=== PATIENT | male | born 1995 | race Hispanic/Latino ===

== ENCOUNTER 2023-06-25 12:40 | Emergency (ER) | payer OTHER, SELFPAY ==
--- NOTE | ~2023-06-25 | XR_ITS ---
EXAMINATION: XR knee LT min 4V DATE: 06/25/2023 13:14 INDICATION: Diffuse left knee swelling with healing wound after patient removed a screw TECHNIQUE: Anteroposterior, 2 oblique and crosstable lateral views of the left knee were obtained COMPARISON: None. FINDINGS: Alignment is normal. No fracture. Joint spaces appear normal on nonweightbearing imaging. Bone islan d at the lateral femoral condyle. Moderate-sized left knee joint effusion. A couple tiny calcific den sities projecting over the quadriceps tendon proximally 4 similar proximal to its patellar insertion. No radiopaque foreign bodies. IMPRESSION: 1. Moderate-sized left knee joint effusion with no acute osseous abnormality or retained radiopaque f oreign bodies. Reviewed, dictated and finalized at location B. IMPRESSION: 1. Moderate-sized left knee joint effusion with no acute osseous abnormality or retained radiopaque foreign bodies.
[2023-06-25 12:59] VITALS: BP 144/82; PULSE 68; RESP 18; TEMP 37.7; O2SAT 100
--- NOTE | 2023-06-25 13:05 | ED.WOUNDLAC ---
HPI - Wound/Laceration General Chief Complaint: Extremity Injury, Lower Stated Complaint: Left Leg Pain Time Seen by Provider: 06/25/23 13:00 Source: patient and technical program manager Mode of arrival: ambulatory Limitations: no limitations History of Present Illness HPI narrative: Patient presents today complaining of an injury to his left knee area. Two days ago while at work, patient screwed through a piece of wood in into his left upper knee area. States the screw penetrated approximately 1/4 inch into his knee. He subsequently pulled the screw out, which had a soft white material on it, presumably fat tissue. He has had some pain surrounding the insertion site with radiating pain up and down his leg since that time. He has been taking ibuprofen with some relief. He is not up-to-date on his tetanus vaccine. Pain increases with movement of the knee. Denies fever or any additional symptoms. Related Data Home Medications Medication Instructions Recorded Confirmed One A Day Vitamin 06/25/23 Allergies Allergy/AdvReac Type Severity Reaction Status Date / Time No Known Allergies Allergy Verified 06/25/23 13:03 [facility] Comments At time of signature, I have reviewed and agree with nursing past medical, surgical, social and family history unless otherwise noted. Please see nursing chart for further information. There is no relevant family history pertinent to the presenting complaint Exam Narrative: GENERAL: Well-appearing, well-nourished, and in no acute distress. HEAD: Normocephalic, atraumatic. EYES: EOMI. No redness or drainage. Conjunctivae normal. ENT: Mucous membranes pink and moist. NECK: Normal AROM. . CHEST: No respiratory distress. EXTREMITIES: Normal range of motion. No edema. SKIN: Warm, dry, no rash. Capillary refill normal. Normal skin turgor. 4mm scabbed area to the left upper knee area with some surrounding healing ecchymosis. No surrounding erythema, ecchymosis, or fluctuance noted. No red streaking noted. No surrounding tenderness at this time. Distal sensation intact. Capillary refill normal. Full range of motion of the knee. NEURO: No focal deficits. Alert and oriented x3. Gait steady. PSYCH: Normal affect. No signs of depression or anxiety. Course Course Level of Care: Express Care Visit Vital Signs Vital signs: Vital Signs Temperature 99.8 F H 06/25/23 12:59 Pulse Rate 68 06/25/23 12:59 Respiratory Rate 18 06/25/23 12:59 Blood Pressure 144/82 H 06/25/23 12:59 Pulse Oximetry 100 06/25/23 12:59 Oxygen Delivery Room Air 06/25/23 12:59 Temperature 99.8 F H 06/25/23 12:59 Pulse Rate 68 06/25/23 12:59 Respiratory Rate 18 06/25/23 12:59 Blood Pressure 144/82 H 06/25/23 12:59 Pulse Oximetry 100 06/25/23 12:59 Oxygen Delivery Room Air 06/25/23 12:59 Reviewed. Pt has been instructed to follow up with his PCP regarding his elevated blood pressure today. MDM - Wound/Laceration Differential Diagnosis Differential diagnosis: Likely abscess and other (Cellulitis) Imaging Data Radiologist's impression: ITS Impressions Knee X-Ray 06/25/23 13:17 IMPRESSION: 1. Moderate-sized left knee joint effusion with no acute osseous abnormality or retained radiopaque foreign bodies. Critical Care Time Critical Care Time Critical Care Time: No Discharge Plan Discharge Clinical Impression: Effusion of knee joint, left, Puncture wound of knee, left Patient Disposition: Home, Self-Care Condition: Stable Instructions: Antibiotic Form Additional Instructions: [place] radiograf?a muestra algo de l?quido alrededor de la articulaci?n de la rodilla. Esta puede ser la scott de [place] dolor de rodilla. La herida punzante en [place] pierna parece normal en la radiograf?a. Por favor, tome los antibi?ticos para prevenir infecciones. Marge un seguimiento con [place] PCP con respecto al l?quido en [place] rodilla la pr?xima semana si los s?ntomas no mejoran. Contin?e
[2023-06-25] MEDS: TETANUS,DIPHTHERIA,AC PERTUSSIS ADULT (0.5 ML) BOOSTRIX IM (13:25)
== END 2023-06-25 13:43 | disposition home or self-care (01) ==
PROVIDERS: Emergency Provider Nurse Practitioner
DX: M25.462 Effusion, left knee (principal); S81.032A Puncture wound without foreign body, left knee, initial encounter; W26.8XXA Contact with other sharp object(s), not elsewhere classified, initial encounter; Y99.0 Civilian activity done for income or pay; Z23 Encounter for immunization
CPT/HCPCS: 73564; 90471; 90715; 99203; G0463

== ENCOUNTER 2024-01-19 08:39 | Emergency (ER) | payer OTHER, SELFPAY ==
--- NOTE | 2024-01-19 08:48 | ED.ABDPAIN ---
HPI - Abdominal Pain General Chief Complaint: Abdominal Pain Stated Complaint: fever,cold sweats,stomach issue Time Seen by Provider: 01/19/24 08:47 Source: patient and network support technician Mode of arrival: ambulatory Limitations: no limitations History of Present Illness HPI narrative: Chayo is a 28-year-old male patient presenting to the clinic today with complaints of fever, sore throat, cold sweats, body aches, upper abdominal pain, and diarrhea. Reports that the fever, sore throat, body aches, chills, sweats, and diarrhea started 2-3 days ago. Also reports he has had upper abdominal pain ongoing for approximately 2 years. States he has been taking omeprazole and [id number] chewable tablets to help alleviate the pain. States he does have some vomiting at times without blood. Denies any blood in his stool. States he does smoke marijuana. Does not smoke tobacco. Takes daily vitamins plus omeprazole. He has taken ibuprofen for his other symptoms for the past 2-3 days. Related Data Home Medications Medication Instructions Recorded Confirmed One A Day Vitamin 1 tablet PO DAILY 06/25/23 01/19/24 Allergies Allergy/AdvReac Type Severity Reaction Status Date / Time No Known Allergies Allergy Verified 01/19/24 09:02 Review of Systems Review of Systems: Pertinent positives per HPI. Patient denies any rash, headache, visual changes, dizziness, cough, runny nose, shortness of breath, chest pain, palpitations, constipation,or any urinary issues. PMFSH Comments At the time of my signature, I reviewed and agree with the nursing past medical, surgical, social, and family history. There is no relevant family history pertinent to the patient complaint. Exam Narrative: General: Well-developed, well nourished, in no apparent distress Head: Normocephalic, atraumatic Eyes: Pupils equally round and reactive to light bilaterally, EOM intact, sclera and conjunctive clear, no discharge, lids normal Ears: TMs intact and clear, ear canals clear, no drainage, grossly hearing normal. Nose: Nares patent, no discharge, no inflammation, no sinus tenderness. Mouth: Oropharynx without lesions or masses, good dentition, MMM. Neck: Supple, trachea midline, no enlargement of anterior or posterior cervical nodes, no thyroid masses or goiter palpable. Cardio: Regular rate and rhythm, s1 and s2 normal, no murmur appreciated. Resp: Clear to auscultation bilaterally anteriorly and posteriorly, no rhonchi, rales, wheezing or rubs Abdomen: Soft, pliable, bowel sounds present in all quadrants, upper abdominal/epigastric tender to palpation, no organomegly, no CVAT tenderness. Course Course Emergency Course: Portions of this record may have been created with voice recognition software. Level of Care: Express Care Visit Vital Signs Vital signs: Vital signs reviewed MDM - Abdominal Pain MDM Narrative Medical decision making narrative: At the time of visit patient is resting comfortably on the exam table. Patient appears to be nontoxic. Labs: Strep and influenza testing was completed. Strep test was negative. Influenza testing was positive for influenza B. Plan: I suspect patient has influenza B with GERD. Prescriptions for Carafate and Protonix was sent to the pharmacy. Supportive measures were discussed with the patient and they voiced understanding discharge instructions and agrees to treatment plan. Return precautions reviewed Differential Diagnosis Differential diagnosis: Likely abdominal pain, gastroenteritis and other (GERD, influenza, upper respiratory infection, pharyngitis, strep, acute nausea/vomiting/diarrhea, viral syndrome) Discharge Plan Discharge Clinical Impression: Influenza B Gastroesophageal reflux disease Qualifiers: Esophagitis presence: esophagitis presence not specified Qualified Code(s): K21.9 - Gastro-esophageal reflux disease without esophagitis Patient Disposition: Home, Self-Care Condi
[2024-01-19 08:55] VITALS: BP 138/80; PULSE 106; RESP 16; TEMP 37.6; O2SAT 100
== END 2024-01-19 09:18 | disposition home or self-care (01) ==
PROVIDERS: Emergency Provider Nurse Practitioner Family
DX: J10.1 Influenza due to other identified influenza virus with other respiratory manifestations (principal); K21.9 Gastro-esophageal reflux disease without esophagitis
CPT/HCPCS: 87081; 87804; 87880; 99213; G0463